=== PATIENT | female | born 1960 | race Caucasian/White ===

== ENCOUNTER → 2023-06-13 11:59 | Outpatient (CLI) | payer OTHER, SELFPAY ==
--- NOTE | 2023-06-13 12:01 | DI.RAD.S_ITS ---
PROCEDURE: XR LUMBAR SPINE 2-3V INDICATIONS: low back pain TECHNIQUE: 3 views of the lumbar spine were acquired. COMPARISON: None. FINDINGS: Bones: 5 [id number] vertebrae are present. 1.3 cm spondylolisthesis L5-S1. Multilevel disc height loss with endplate sclerosis and spurring, most notably and moderate at the L5-S1 level. Moderate facet joint arthropathy L5-S1.. No vertebral body compression fractures. No suspicious bony lesions. Soft tissues: Overlying bowel gas pattern is normal. No suspicious soft tissue calcifications. IMPRESSION: 1. Grade 2 spondylolisthesis L5-S1. Pars interarticularis defect cannot be excluded. 2. Multilevel lumbar spine spondylosis, most notably at the L5-S1 level. Dictated by: Dain Diaz [facility] Interpreted: Reji Melgar MD on 06/13/2023 at 12:36 Transcribed by: GUADALUPE on 06/13/2023 at 12:41 Approved by: Reji Melgar M.D. on 06/13/2023 at 13:55
[2023-06-13 14:20] LABS: Cholesterol 192 mg/dL (140-199); HDL Cholesterol 75 mg/dL (40-60); LDL Cholesterol Calculated 92 mg/dL (<100); Triglycerides 126 mg/dL (35-150)
--- NOTE | 2023-06-13 16:12 | DI.MG.S_ITS ---
BILATERAL DIGITAL SCREENING MAMMOGRAM 3D/2D WITH CAD: 06/13/2023 CLINICAL: Routine screening. Routine screening. Comparison is made to exams dated: 07/18/2020 mammogram, 06/01/2018 mammogram, 05/26/2017 mammogram, 05/23/2016 mammogram, and 05/22/2015 mammogram - outside facility. There are scattered areas of fibroglandular density in both breasts (category b / 25%-50% glandular tissue). Current study was also evaluated with a Computer Aided Detection (CAD) system. No significant masses, calcifications, or other findings are seen in either breast. There has been no significant interval change. IMPRESSION: NEGATIVE There is no mammographic evidence of malignancy. A 1 year screening mammogram is recommended. Based on the Tyrer Cuzick model (a risk assessment model) the patient's lifetime risk is 6.6% and her 10 year risk is 2.7%. According to the ACR, ACS, and NCCN guidelines, an annual breast MRI exam along with mammogram is recommended if the patient's lifetime risk is 20% or greater. This exam was interpreted at Station ID: [id number]. NOTE: For mammograms, a report in lay terms will be sent to the patient. Approximately 15% of breast malignancies will not be visualized mammographically. In the management of a palpable breast mass, a negative mammogram must not discourage biopsy of a clinically suspicious lesion. Electronically Signed By: Maxwell [email or web address]:06/16/2023 07:15:57 letter sent: Normal Exam ACR BI-RADS Category 1: Negative [id number]
== END ==
PROVIDERS: PCP Student in an Organized Health Care Education/Training Program; Referring Provider Student in an Organized Health Care Education/Training Program; Visit Provider Student in an Organized Health Care Education/Training Program
DX: Z12.31 Encounter for screening mammogram for malignant neoplasm of breast (principal); R92.323 Mammographic fibroglandular density, bilateral breasts; M43.17 Spondylolisthesis, lumbosacral region; Z13.220 Encounter for screening for lipoid disorders; M47.816 Spondylosis without myelopathy or radiculopathy, lumbar region; M47.817 Spondylosis without myelopathy or radiculopathy, lumbosacral region; M54.50 Low back pain, unspecified
CPT/HCPCS: 36415; 72100; 77063; 77067; 80061

== ENCOUNTER 2023-08-20 10:30 | Outpatient (RCR) | payer OTHER, SELFPAY ==
--- NOTE | 2023-07-15 12:49 | PT.OIE ---
Current Diagnoses Low back pain, unspecified (07/15/23) Visit Care Team Role Provider Type Marianne Adams MD Attending Provider Physician Family Provider Primary Care Provider Referring Provider Specialty: Family Practice Obstetrics Address: [address] [place] [address], [id number] Email: [email or web address] Physical Therapy Initial Evaluation PT-OP-A Visit Information Start: 07/14/23 13:32 Freq: Status: Active Protocol: Document 07/15/23 10:19 MB (Rec: 07/15/23 11:11 [id number]) Out-Patient Physical Therapy Visit Information Visit Information Visit Type Initial Evaluation Visit Start Time 10:19 Visit Stop Time 11:15 Visit Number 56 Number of FAST FOOD RESTAURANT MANAGER Visits 0 Evaluation Information Evaluation Date 07/15/23 PT-OP-B Current Condition Start: 07/14/23 13:32 Freq: Status: Active Protocol: Document 07/15/23 10:19 MB (Rec: 07/15/23 11:11 [id number]) Current Condition History of Current Condition Onset Date 6 months Current Complaints Sore low back all the time History of Current Condition Pt is commuting from [facility] and it is timely and costly. Pt reports about 6 months of LBP. Her back sore most of the time. She cannot think of an event that caused it. She has had PT once in the past for her shoulder and it was a good experience. 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 She is building a house and is helping with the work on it and she has been doing more work on it over the past 6 months. She has a big garden, 5 acres and likes to ride her back. She has arthritis in both her knees. Her back pain is not keeping her from anything but she suffers. Pt is waking up d/t back and knee pain. She has a CPAP and is a side sleeper. She does not use pillow support between arms or legs. Pt denies numbness and tingling and pain in the legs other than arthritic pain. Pt has HTN, HLD, history of left foot surgery and achilles lengthening, right shoulder arthroscopic surgery after fall and injury and . She occ feels like her legs are weak. Prior Treatments and Tests Lumbar x-ray 06/13/23: IMPRESSION: 1. Grade 2 spondylolisthesis L5-S1. Pars interarticularis defect cannot be excluded. 2. Multilevel lumbar spine spondylosis, most notably at the L5-S1 level. Treatment Goals Patient/Caregiver Goals Pt would like to decrease back pain and find exercises to strengthen back PT-OP-C Subjective Start: 07/14/23 13:32 Freq: Status: Active Protocol: Document 07/15/23 10:19 MB (Rec: 07/15/23 11:11 MB [id number]) OP-PT Subjective Patient Comments Patient Comments See above Patient Questionnaires Oswestry Low Back Index Oswestry Score 5/50 Oswestry Impairment 1 to 19% Impaired (Score 1-19) PT-OP-G Mobility & Gait Start: 07/14/23 13:32 Freq: Status: Active Protocol: Document 07/15/23 10:19 MB (Rec: 07/15/23 11:11 MB [id number]) OP Gait Assessment Comments Gait Comments Forward head, rounded shoulders, decreased arm swing , right leg is functionally longer than the left with gait , B knee varus PT-OP-J Posture/Palpation/Skin Start: 07/14/23 13:32 Freq: Status: Active Protocol: Document 07/15/23 10:19 MB (Rec: 07/15/23 11:11 MB [id number]) Posture Evaluation Comments Posture Comments Standing posture: increased soft tissue in abdominal area, left shoulder higher than the right, B rounded shoulders, increased thoracic convexity/ kyphosis, convexity to the left and 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 With repeated extension, increased pain and limited lumbar extension to only about 10 deg. Pt prefers repeated flexion and she is able to work up to fingertips 4 off the floor with flexion. Thoracic mobility in sitting: thoracic rotation left is grossly 20 deg and 25 deg to the right. Passive SLR: pt is unable to allow PT perform without helping PT-OP-M Strength Start: 07/14/23 13:32 Freq: Status: Active Protocol: Document 07/15/23 10:19 MB (Rec: 07/15/23 11:11 MB [id number]) Hip Strength Hip Manual Muscle Testing Left Flexion (L2) 5 Normal Extension (S1) 5 Normal Abduction 5 Normal Right Flexion (L2) 5 Normal Extension (S1) 4+ Good+ Abduction 4+ Good+ Knee Strength Knee Manual Muscle Testing Left Flexion (S2) 4+ Good+ Extension (L3) 5 Normal Right Flexion (S2) 4+ Good+ Extension (L3) 5 Normal Ankle/Foot Strength Ankle and Foot Manual Muscle Testing Bilateral Dorsiflexion (L4) 5 Normal Toe Strength Toe Manual Muscle Testing Left Great Toe Extension 5 Normal Right Great Toe Extension 5 Normal PT-OP-Q Treatments Start: 07/14/23 13:32 Freq: Status: Active Protocol: Document 07/15/23 10:19 MB (Rec: 07/15/23 11:11 MB [id number]) Therapeutic Exercises Supine Exercises Glute and hip rotator stretch Side bilateral Reps/Minutes 30 sec to 1 min Hip flexor and quad stretch Side bilateral Reps/Minutes 30 sec to 1 min Pelvic realignment exercises Side bilateral Equipment Used Blue ball Reps/Minutes 5 reps, 3 sec hold all exercises in order Comments Feet together ball squeeze iso , knee to opp ankle iso, thigh press down iso Self-Care/Home Management Treatment Education Patient Education Body Mechanics,Home Exercise Program,Joint Protection,Pain Management,Posture Other Education Proper sleeping position with use of pillow support, benefits of ice and heat, log roll technique, hydration with decreased caffeine and alcohol intake and possible electrolytes d/t muscle tension PT-OP-T Assessment and Plan Start: 07/14/23 13:32 Freq: Status: Active Protocol: Document 07/15/23 10:19 MB (Rec: 07/15/23 11:11 MB [id number]) Physical Therapy Assessment Rehab Potential Rehabilitation Potential Good Evaluation Complexity Number of Personal Factors/Comorbidities 1-2 Number of Body Systems Impaired 1-2 Clinical Presentation at Evaluation Evolving Impairments Impairments Activity Tolerance,Balance, Pain,Posture,ROM,Soft Tissue Mobility,Strength Goals 4 Impairment Poor sleeping d/t pain Shelter Goal (LTG) Pt will report at least a 50% improvement in pain d/t back pain to improve restorative rest. LTG Duration 8 weeks 3 Impairment Limited thoracic and lumbar ROM Parking Enforcement Specialist Goal (LTG) Pt will present with improved B thoracic rotation in sitting to equal both directions at least 25-30 deg, and lumbar flexion with fingertips no further than 2 from floor to improve spinal mobility and pain. LTG Duration 8 weeks 2 Impairment Lack of HEP Parking Enforcement Specialist Goal (LTG) Pt will perform progressive HEP with I including pelvic realignment, posture, flexibility, gentle core and LE strengthening and balance exercises to improve pain and function. LTG Duration 8 weeks 1 Impairment Oswestry score 5/50, reflecting 10% impairment Shelter Goal (LTG) Pt will present with an improved Oswestry score to no more than 5% impairment to reflect less pain and disability d/t back pain. LTG Duration 8 weeks Assessment Summary Assessment Pt is a 62 y/o female presenting with postural changes and pelvic obliquities : she has severe thoracic kyphosis and some convexity and sway back. She has limited thoracic and lumbar mobility and her left iliac crest is higher than the right in standing and she walks with functional leg length difference of right leg longer than the left. Her LE strength is good and she has no LE paresthesias. She presents with globalized muscle tension great in quads and hip rotators today. She will benefit from PT to improve pelvic alignment, flexibility, core strength, balance and posture. Physical Therapy Plan Frequency and Duration Frequency of Treatment 1x/wk, every other w Duration of treatment (weeks) 8 Plan of Care Start Date 07/15/23 Plan of Care End Date 09/15/23 Therapeutic Interventions Therapeutic Interventions Balance Training,Canalithic Repositioning,Gait Training, Home Exercise Program,Joint Mobilizations,Manual Therapy, Neuromuscular Re-education, Patient/Caregiver Education, Self-Care/Home Management,Soft Tissue Mobilization,Taping, Therapeutic Activities, Therapeutic Exercises Modalities Cold Pack/Ice Massage,Electric Stimulation,Hot Packs, Ultrasound Next Visit Focus/Plan Next Note Type Treatment Note Next Visit Plan Review pelvic realignment exercises and stretches, begin manual work, consider open book and hamstring stretch in hook lying with AP for next treatment additions.
--- NOTE | 2023-07-15 12:49 | PT.OPPOC ---
Physical, Occupational & Speech Therapy At [facility] Current Diagnoses Low back pain, unspecified (07/15/23) Visit Care Team Role Provider Type Marianne Adams MD Attending Provider Physician Family Provider Primary Care Provider Referring Provider Specialty: Family Practice Obstetrics Address: [address] [place] [address], [id number] Email: [email or web address] Plan Of Care PT-OP-T Assessment and Plan Start: 07/14/23 13:32 Freq: Status: Active Protocol: Document 07/15/23 10:19 MB (Rec: 07/15/23 11:11 MB [id number]) Physical Therapy Assessment Rehab Potential Rehabilitation Potential Good Evaluation Complexity Number of Personal Factors/Comorbidities 1-2 Number of Body Systems Impaired 1-2 Clinical Presentation at Evaluation Evolving Impairments Impairments Activity Tolerance,Balance, Pain,Posture,ROM,Soft Tissue Mobility,Strength Goals 4 Impairment Poor sleeping d/t pain Correction Goal (LTG) Pt will report at least a 50% improvement in pain d/t back pain to improve restorative rest. LTG Duration 8 weeks 3 Impairment Limited thoracic and lumbar ROM Freight Loading Supervisor Goal (LTG) Pt will present with improved B thoracic rotation in sitting to equal both directions at least 25-30 deg, and lumbar flexion with fingertips no further than 2 from floor to improve spinal mobility and pain. LTG Duration 8 weeks 2 Impairment Lack of HEP Freight Loading Supervisor Goal (LTG) Pt will perform progressive HEP with I including pelvic realignment, posture, flexibility, gentle core and LE strengthening and balance exercises to improve pain and function. LTG Duration 8 weeks 1 Impairment Oswestry score 5/50, reflecting 10% impairment Freight Loading Supervisor Goal (LTG) Pt will present with an improved Oswestry score to no more than 5% impairment to reflect less pain and disability d/t back pain. LTG Duration 8 weeks Assessment Summary Assessment Pt is a 62 y/o female presenting with postural changes and pelvic obliquities : she has severe thoracic kyphosis and some convexity and sway back. She has limited thoracic and lumbar mobility and her left iliac crest is higher than the right in standing and she walks with functional leg length difference of right leg longer than the left. Her LE strength is good and she has no LE paresthesias. She presents with globalized muscle tension great in quads and hip rotators today. She will benefit from PT to improve pelvic alignment, flexibility, core strength, balance and posture. Physical Therapy Plan Frequency and Duration Frequency of Treatment 1x/wk, every other w Duration of treatment (weeks) 8 Plan of Care Start Date 07/15/23 Plan of Care End Date 09/15/23 Therapeutic Interventions Therapeutic Interventions Balance Training,Canalithic Repositioning,Gait Training, Home Exercise Program,Joint Mobilizations,Manual Therapy, Neuromuscular Re-education, Patient/Caregiver Education, Self-Care/Home Management,Soft Tissue Mobilization,Taping, Therapeutic Activities, Therapeutic Exercises Modalities Cold Pack/Ice Massage,Electric Stimulation,Hot Packs, Ultrasound Next Visit Focus/Plan Next Note Type Treatment Note Next Visit Plan Review pelvic realignment exercises and stretches, begin manual work, consider open book and hamstring stretch in hook lying with AP for next treatment additions. Plan of Care Dates Plan of Care Start Date 07/15/23 Plan of Care End Date 09/15/23 Electronically Signed by: Brianna Hernandez PT 07/15/23 4122 If you are in agreement with this Plan of Care, please return a signed and dated copy. I have reviewed this Plan of Care and certify that the skilled therapy services above are required to meet the patient?s needs. Physician Signature Date Printed Name and Credentials Clinical Instructor Signature Printed Name and Credentials
--- NOTE | 2023-07-22 11:16 | PT.OTN ---
Current Diagnoses Low back pain, unspecified (07/22/23) Physical Therapy Treatment Note PT-OP-A Visit Information Start: 07/14/23 13:32 Freq: Status: Active Protocol: Document 07/22/23 10:32 MB (Rec: 07/22/23 11:15 MB [id number]) Out-Patient Physical Therapy Visit Information Visit Information Visit Type Treatment Note Visit Start Time 10:32 Visit Stop Time 11:12 Visit Number 40 Number of SPECIFICATION MANAGER Visits 0 PT-OP-B Current Condition Start: 07/14/23 13:32 Freq: Status: Active Protocol: Document 07/15/23 10:19 MB (Rec: 07/15/23 11:11 MB [id number]) Current Condition History of Current Condition Onset Date 6 months Current Complaints Sore low back all the time History of Current Condition Pt is commuting from [facility] and it is timely and costly. Pt reports about 6 months of LBP. Her back sore most of the time. She cannot think of an event that caused it. She has had PT once in the past for her shoulder and it was a good experience. 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 She is building a house and is helping with the work on it and she has been doing more work on it over the past 6 months. She has a big garden, 5 acres and likes to ride her back. She has arthritis in both her knees. Her back pain is not keeping her from anything but she suffers. Pt is waking up d/t back and knee pain. She has a CPAP and is a side sleeper. She does not use pillow support between arms or legs. Pt denies numbness and tingling and pain in the legs other than arthritic pain. Pt has HTN, HLD, history of left foot surgery and achilles lengthening, right shoulder arthroscopic surgery after fall and injury and . She occ feels like her legs are weak. Prior Treatments and Tests Lumbar x-ray 06/13/23: IMPRESSION: 1. Grade 2 spondylolisthesis L5-S1. Pars interarticularis defect cannot be excluded. 2. Multilevel lumbar spine spondylosis, most notably at the L5-S1 level. Treatment Goals Patient/Caregiver Goals Pt would like to decrease back pain and find exercises to strengthen back PT-OP-C Subjective Start: 07/14/23 13:32 Freq: Status: Active Protocol: Document 07/22/23 10:32 MB (Rec: 07/22/23 11:15 MB [id number]) OP-PT Subjective Patient Comments Patient Comments Pt was a little sore after the evaluation but is doing better. PT-OP-G Mobility & Gait Start: 07/14/23 13:32 Freq: Status: Active Protocol: Document 07/15/23 10:19 MB (Rec: 07/15/23 11:11 MB [id number]) OP Gait Assessment Comments Gait Comments Forward head, rounded shoulders, decreased arm swing , right leg is functionally longer than the left with gait , B knee varus PT-OP-J Posture/Palpation/Skin Start: 07/14/23 13:32 Freq: Status: Active Protocol: Document 07/15/23 10:19 MB (Rec: 07/15/23 11:11 MB [id number]) Posture Evaluation Comments Posture Comments Standing posture: increased soft tissue in abdominal area, left shoulder higher than the right, B rounded shoulders, increased thoracic convexity/ kyphosis, convexity to the left and 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 With repeated extension, increased pain and limited lumbar extension to only about 10 deg. Pt prefers repeated flexion and she is able to work up to fingertips 4 off the floor with flexion. Thoracic mobility in sitting: thoracic rotation left is grossly 20 deg and 25 deg to the right. Passive SLR: pt is unable to allow PT perform without helping PT-OP-M Strength Start: 07/14/23 13:32 Freq: Status: Active Protocol: Document 07/15/23 10:19 MB (Rec: 07/15/23 11:11 MB [id number]) Hip Strength Hip Manual Muscle Testing Left Flexion (L2) 5 Normal Extension (S1) 5 Normal Abduction 5 Normal Right Flexion (L2) 5 Normal Extension (S1) 4+ Good+ Abduction 4+ Good+ Knee Strength Knee Manual Muscle Testing Left Flexion (S2) 4+ Good+ Extension (L3) 5 Normal Right Flexion (S2) 4+ Good+ Extension (L3) 5 Normal Ankle/Foot Strength Ankle and Foot Manual Muscle Testing Bilateral Dorsiflexion (L4) 5 Normal Toe Strength Toe Manual Muscle Testing Left Great Toe Extension 5 Normal Right Great Toe Extension 5 Normal PT-OP-Q Treatments Start: 07/14/23 13:32 Freq: Status: Active Protocol: Document 07/22/23 10:32 MB (Rec: 07/22/23 11:15 MB [id number]) Therapeutic Exercises Supine Exercises Combined posterior, lateral and medial leg stretch Equipment Used Use of gait belt under foot Reps/Minutes 30 APs (30 sec to 1 min) Comments 1st: hamstring and calf with AP 2nd: TFL and glute min/ITB 3rd: add Glute and hip rotator stretch Side bilateral Reps/Minutes 30 sec to 1 min Hip flexor and quad stretch Side bilateral Reps/Minutes 30 sec to 1 min Pelvic realignment exercises Side bilateral Equipment Used Blue ball Reps/Minutes 5 reps, 3 sec hold all exercises in order Comments Feet together ball squeeze iso , knee to opp ankle iso, thigh press down iso Sidelying Exercises Open book Reps/Minutes 3-5 times Comments Perform on each side, pillow between legs as needed Manual Therapy Treatment Other Other Manual Treatments Pt supine: B quads, TFL, glute STM PT-OP-T Assessment and Plan Start: 07/14/23 13:32 Freq: Status: Active Protocol: Document 07/22/23 10:32 MB (Rec: 07/22/23 11:15 MB [id number]) Physical Therapy Assessment Rehab Potential Rehabilitation Potential Good Evaluation Complexity Number of Personal Factors/Comorbidities 1-2 Number of Body Systems Impaired 1-2 Clinical Presentation at Evaluation Evolving Impairments Impairments Activity Tolerance,Balance, Pain,Posture,ROM,Soft Tissue Mobility,Strength Goals 4 Impairment Poor sleeping d/t pain Care Home Goal (LTG) Pt will report at least a 50% improvement in pain d/t back pain to improve restorative rest. LTG Duration 8 weeks 3 Impairment Limited thoracic and lumbar ROM Human Factors Scientist Goal (LTG) Pt will present with improved B thoracic rotation in sitting to equal both directions at least 25-30 deg, and lumbar flexion with fingertips no further than 2 from floor to improve spinal mobility and pain. LTG Duration 8 weeks 2 Impairment Lack of HEP Care Home Goal (LTG) Pt will perform progressive HEP with I including pelvic realignment, posture, flexibility, gentle core and LE strengthening and balance exercises to improve pain and function. LTG Duration 8 weeks 1 Impairment Oswestry score 5/50, reflecting 10% impairment Care Home Goal (LTG) Pt will present with an improved Oswestry score to no more than 5% impairment to reflect less pain and disability d/t back pain. LTG Duration 8 weeks Assessment Summary Assessment Pt has been waking up less due to pain d/t putting pillow between her knees at night. Reviewed HEP and progressed today. Will con't manual work and flexibilty exercises and progress to core and LE strengthening and balance exercises. Physical Therapy Plan Frequency and Duration Frequency of Treatment 1x/wk, every other w Duration of treatment (weeks) 8 Plan of Care Start Date 07/15/23 Plan of Care End Date 09/15/23 Therapeutic Interventions Therapeutic Interventions Balance Training,Canalithic Repositioning,Gait Training, Home Exercise Program,Joint Mobilizations,Manual Therapy, Neuromuscular Re-education, Patient/Caregiver Education, Self-Care/Home Management,Soft Tissue Mobilization,Taping, Therapeutic Activities, Therapeutic Exercises Modalities Cold Pack/Ice Massage,Electric Stimulation,Hot Packs, Ultrasound Next Visit Focus/Plan Next Note Type Treatment Note Next Visit Plan Over many treatments: Ongoing manual work, doorway stretch for pect, QL and hip flexor; initiate gentle core progression in hook lying, consider Body blade in future, gentle hip progression starting in hook lying with clam and then in standing, standing balance exercise, body mechanics with core engagement
--- NOTE | 2023-07-29 16:17 | PT.OTN ---
Current Diagnoses Low back pain, unspecified (07/29/23) Physical Therapy Treatment Note PT-OP-A Visit Information Start: 07/14/23 13:32 Freq: Status: Active Protocol: Document 07/29/23 13:05 SW (Rec: 07/29/23 13:59 SW [id number]) Out-Patient Physical Therapy Visit Information Visit Information Visit Type Treatment Note Visit Start Time 13:03 Visit Stop Time 13:41 Number of CAMP NURSE Visits 1 PT-OP-B Current Condition Start: 07/14/23 13:32 Freq: Status: Active Protocol: Document 07/15/23 10:19 MB (Rec: 07/15/23 11:11 MB [id number]) Current Condition History of Current Condition Onset Date 6 months Current Complaints Sore low back all the time History of Current Condition Pt is commuting from [facility] and it is timely and costly. Pt reports about 6 months of LBP. Her back sore most of the time. She cannot think of an event that caused it. She has had PT once in the past for her shoulder and it was a good experience. 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 She is building a house and is helping with the work on it and she has been doing more work on it over the past 6 months. She has a big garden, 5 acres and likes to ride her back. She has arthritis in both her knees. Her back pain is not keeping her from anything but she suffers. Pt is waking up d/t back and knee pain. She has a CPAP and is a side sleeper. She does not use pillow support between arms or legs. Pt denies numbness and tingling and pain in the legs other than arthritic pain. Pt has HTN, HLD, history of left foot surgery and achilles lengthening, right shoulder arthroscopic surgery after fall and injury and . She occ feels like her legs are weak. Prior Treatments and Tests Lumbar x-ray 06/13/23: IMPRESSION: 1. Grade 2 spondylolisthesis L5-S1. Pars interarticularis defect cannot be excluded. 2. Multilevel lumbar spine spondylosis, most notably at the L5-S1 level. Treatment Goals Patient/Caregiver Goals Pt would like to decrease back pain and find exercises to strengthen back PT-OP-C Subjective Start: 07/14/23 13:32 Freq: Status: Active Protocol: Document 07/29/23 13:05 SW (Rec: 07/29/23 13:59 SW [id number]) OP-PT Subjective Patient Comments Patient Comments Pt reports 5/10 pain today, rough ride over on personal boat. PT-OP-G Mobility & Gait Start: 07/14/23 13:32 Freq: Status: Active Protocol: Document 07/15/23 10:19 MB (Rec: 07/15/23 11:11 MB [id number]) OP Gait Assessment Comments Gait Comments Forward head, rounded shoulders, decreased arm swing , right leg is functionally longer than the left with gait , B knee varus PT-OP-J Posture/Palpation/Skin Start: 07/14/23 13:32 Freq: Status: Active Protocol: Document 07/15/23 10:19 MB (Rec: 07/15/23 11:11 MB [id number]) Posture Evaluation Comments Posture Comments Standing posture: increased soft tissue in abdominal area, left shoulder higher than the right, B rounded shoulders, increased thoracic convexity/ kyphosis, convexity to the left and 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 With repeated extension, increased pain and limited lumbar extension to only about 10 deg. Pt prefers repeated flexion and she is able to work up to fingertips 4 off the floor with flexion. Thoracic mobility in sitting: thoracic rotation left is grossly 20 deg and 25 deg to the right. Passive SLR: pt is unable to allow PT perform without helping PT-OP-M Strength Start: 07/14/23 13:32 Freq: Status: Active Protocol: Document 07/15/23 10:19 MB (Rec: 07/15/23 11:11 MB [id number]) Hip Strength Hip Manual Muscle Testing Left Flexion (L2) 5 Normal Extension (S1) 5 Normal Abduction 5 Normal Right Flexion (L2) 5 Normal Extension (S1) 4+ Good+ Abduction 4+ Good+ Knee Strength Knee Manual Muscle Testing Left Flexion (S2) 4+ Good+ Extension (L3) 5 Normal Right Flexion (S2) 4+ Good+ Extension (L3) 5 Normal Ankle/Foot Strength Ankle and Foot Manual Muscle Testing Bilateral Dorsiflexion (L4) 5 Normal Toe Strength Toe Manual Muscle Testing Left Great Toe Extension 5 Normal Right Great Toe Extension 5 Normal PT-OP-Q Treatments Start: 07/14/23 13:32 Freq: Status: Active Protocol: Document 07/29/23 13:05 (Rec: 07/29/23 13:59 [id number]) Therapeutic Exercises Supine Exercises TA Supine Exercise Name TA activation w/PPT (issued HEP HO) Reps/Minutes 5 reps, 3 hold Combined posterior, lateral and medial leg stretch Equipment Used Use of gait belt under foot Reps/Minutes 30 APs (30 sec to 1 min) Comments 1st: hamstring and calf with AP 2nd: TFL and glute min/ITB 3rd: add Glute and hip rotator stretch Side bilateral Reps/Minutes 30 sec to 1 min Pelvic realignment exercises Side bilateral Equipment Used Blue ball Reps/Minutes 5 reps, 3 sec hold all exercises in order Comments Feet together ball squeeze iso , knee to opp ankle iso, thigh press down iso Sidelying Exercises Open book Reps/Minutes 3-5 times Comments Perform on each side, pillow between legs as needed Standing Exercises Doorway stretch Standing Exercise Name Pec, Hip flexor> to side for QL (issued HEP HO) Reps/Minutes 30-1 min hold Self-Care/Home Management Treatment Education Patient Education Body Mechanics,Home Exercise Program,Joint Protection,Pain Management,Posture Other Education Educated pt on sleep positioning, pillow between knees, towel roll under side to promote spinal alignment. Pt education on HEP execution/ timing. PT-OP-T Assessment and Plan Start: 07/14/23 13:32 Freq: Status: Active Protocol: Document 07/29/23 13:05 (Rec: 07/29/23 13:59 [id number]) Physical Therapy Assessment Goals 4 Impairment Poor sleeping d/t pain Phototypesetting Equipment Monitor Goal (LTG) Pt will report at least a 50% improvement in pain d/t back pain to improve restorative rest. LTG Duration 8 weeks 3 Impairment Limited thoracic and lumbar ROM Prison Goal (LTG) Pt will present with improved B thoracic rotation in sitting to equal both directions at least 25-30 deg, and lumbar flexion with fingertips no further than 2 from floor to improve spinal mobility and pain. LTG Duration 8 weeks 2 Impairment Lack of HEP Prison Goal (LTG) Pt will perform progressive HEP with I including pelvic realignment, posture, flexibility, gentle core and LE strengthening and balance exercises to improve pain and function. LTG Duration 8 weeks 1 Impairment Oswestry score 5/50, reflecting 10% impairment Prison Goal (LTG) Pt will present with an improved Oswestry score to no more than 5% impairment to reflect less pain and disability d/t back pain. LTG Duration 8 weeks Assessment Summary Assessment Initiated gentle core stabilization this session, pt tolerated well no increase in symptoms, verbal and tactile cues to facilitate activation of correct muscles. Initiated Doorway stretch for hip flexor , pec, QL, and gastroc/soleus muscles, good tolerance. Pt overall tolerated session well with no increase in symptoms and felt good stretch today, plan to assess pt tolerance to new exercises this session, and progress core stabiliztion as able. Physical Therapy Plan Frequency and Duration Frequency of Treatment 1x/wk, every other w Duration of treatment (weeks) 8 Plan of Care Start Date 07/15/23 Plan of Care End Date 09/15/23 Therapeutic Interventions Therapeutic Interventions Balance Training,Canalithic Repositioning,Gait Training, Home Exercise Program,Joint Mobilizations,Manual Therapy, Neuromuscular Re-education, Patient/Caregiver Education, Self-Care/Home Management,Soft Tissue Mobilization,Taping, Therapeutic Activities, Therapeutic Exercises Modalities Cold Pack/Ice Massage,Electric Stimulation,Hot Packs, Ultrasound Next Visit Focus/Plan Next Note Type Treatment Note Next Visit Plan Over many treatments: Ongoing manual work, doorway stretch for pect, QL and hip flexor; initiate gentle core progression in hook lying, consider Body blade in future, gentle hip progression starting in hook lying with clam and then in standing, standing balance exercise, body mechanics with core engagement
--- NOTE | 2023-08-20 11:13 | PT.OTN ---
Current Diagnoses Low back pain, unspecified (08/20/23) Physical Therapy Treatment Note PT-OP-A Visit Information Start: 07/14/23 13:32 Freq: Status: Active Protocol: Document 08/20/23 10:31 MB (Rec: 08/20/23 11:05 MB [id number]) Out-Patient Physical Therapy Visit Information Visit Information Visit Type Treatment Note Visit Start Time 10:31 Visit Stop Time 11:09 Visit Number 4 Number of BOX ESTIMATOR Visits 0 PT-OP-B Current Condition Start: 07/14/23 13:32 Freq: Status: Active Protocol: Document 07/15/23 10:19 MB (Rec: 07/15/23 11:11 MB [id number]) Current Condition History of Current Condition Onset Date 6 months Current Complaints Sore low back all the time History of Current Condition Pt is commuting from [facility] and it is timely and costly. Pt reports about 6 months of LBP. Her back sore most of the time. She cannot think of an event that caused it. She has had PT once in the past for her shoulder and it was a good experience. 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 She is building a house and is helping with the work on it and she has been doing more work on it over the past 6 months. She has a big garden, 5 acres and likes to ride her back. She has arthritis in both her knees. Her back pain is not keeping her from anything but she suffers. Pt is waking up d/t back and knee pain. She has a CPAP and is a side sleeper. She does not use pillow support between arms or legs. Pt denies numbness and tingling and pain in the legs other than arthritic pain. Pt has HTN, HLD, history of left foot surgery and achilles lengthening, right shoulder arthroscopic surgery after fall and injury and . She occ feels like her legs are weak. Prior Treatments and Tests Lumbar x-ray 06/13/23: IMPRESSION: 1. Grade 2 spondylolisthesis L5-S1. Pars interarticularis defect cannot be excluded. 2. Multilevel lumbar spine spondylosis, most notably at the L5-S1 level. Treatment Goals Patient/Caregiver Goals Pt would like to decrease back pain and find exercises to strengthen back PT-OP-C Subjective Start: 07/14/23 13:32 Freq: Status: Active Protocol: Document 08/20/23 10:31 MB (Rec: 08/20/23 11:05 MB [id number]) OP-PT Subjective Patient Comments Patient Comments Pt reports her pain is much better and occ flares up and she is doing all her exercises . PT-OP-G Mobility & Gait Start: 07/14/23 13:32 Freq: Status: Active Protocol: Document 07/15/23 10:19 MB (Rec: 07/15/23 11:11 MB [id number]) OP Gait Assessment Comments Gait Comments Forward head, rounded shoulders, decreased arm swing , right leg is functionally longer than the left with gait , B knee varus PT-OP-J Posture/Palpation/Skin Start: 07/14/23 13:32 Freq: Status: Active Protocol: Document 07/15/23 10:19 MB (Rec: 07/15/23 11:11 MB [id number]) Posture Evaluation Comments Posture Comments Standing posture: increased soft tissue in abdominal area, left shoulder higher than the right, B rounded shoulders, increased thoracic convexity/ kyphosis, convexity to the left and 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 With repeated extension, increased pain and limited lumbar extension to only about 10 deg. Pt prefers repeated flexion and she is able to work up to fingertips 4 off the floor with flexion. Thoracic mobility in sitting: thoracic rotation left is grossly 20 deg and 25 deg to the right. Passive SLR: pt is unable to allow PT perform without helping PT-OP-M Strength Start: 07/14/23 13:32 Freq: Status: Active Protocol: Document 07/15/23 10:19 MB (Rec: 07/15/23 11:11 MB [id number]) Hip Strength Hip Manual Muscle Testing Left Flexion (L2) 5 Normal Extension (S1) 5 Normal Abduction 5 Normal Right Flexion (L2) 5 Normal Extension (S1) 4+ Good+ Abduction 4+ Good+ Knee Strength Knee Manual Muscle Testing Left Flexion (S2) 4+ Good+ Extension (L3) 5 Normal Right Flexion (S2) 4+ Good+ Extension (L3) 5 Normal Ankle/Foot Strength Ankle and Foot Manual Muscle Testing Bilateral Dorsiflexion (L4) 5 Normal Toe Strength Toe Manual Muscle Testing Left Great Toe Extension 5 Normal Right Great Toe Extension 5 Normal PT-OP-Q Treatments Start: 07/14/23 13:32 Freq: Status: Active Protocol: Document 08/20/23 10:31 MB (Rec: 08/20/23 11:05 MB [id number]) Therapeutic Exercises Supine Exercises Bridge with band around hips Equipment Used Theraband around knees, teal Comments Gentle bridging warm-up, then progressed to hold, press out Gentle core progression Reps/Minutes To tolerance, keep pelvic tilt and core tight Comments Set position for TA and pelvic tilt, then knee rock, HS, mini march, fall o TA Comments Reviewed today with pelvic tilt today Glute and hip rotator stretch Comments I performed today Sitting Exercises Thoracic rotation in sitting Comments Hands across the chest and ROM both directions Neuro Re-Education Treatment Balance Activities Corner static balance testing for HEP Comments Romberg standing EO no trouble , Romberg EC with slight sway, some tap out at wall with B tandem up to 1' and good exercise for home; SLS a little more challenging on the right PT-OP-T Assessment and Plan Start: 07/14/23 13:32 Freq: Status: Active Protocol: Document 08/20/23 10:31 MB (Rec: 08/20/23 11:05 MB [id number]) Physical Therapy Assessment Goals 4 Impairment Poor sleeping d/t pain Half-Way Goal (LTG) Pt will report at least a 50% improvement in sleeping d/t back pain to improve restorative rest. 08/20/23 Goal met and pt states that she is sleeping much better LTG Duration Met 3 Impairment Limited thoracic and lumbar ROM Half-Way Goal (LTG) Pt will present with improved B thoracic rotation in sitting to equal both directions at least 25-30 deg, and lumbar flexion with fingertips no further than 2 from floor to improve spinal mobility and pain. 08/20/23: Right thoracic rotation grossly 25 deg and left 30 deg; lumbar flexion with fingertips grossly 2.5 from the floor LTG Duration Partially met 2 Impairment Lack of HEP Slip Box Changer Goal (LTG) Pt will perform progressive HEP with I including pelvic realignment, posture, flexibility, gentle core and LE strengthening and balance exercises to improve pain and function. 08/20/23 Pt is performing all HEP exercises and is feeling good LTG Duration Met 1 Impairment Oswestry score 5/50, reflecting 10% impairment Slip Box Changer Goal (LTG) Pt will present with an improved Oswestry score to no more than 5% impairment to reflect less pain and disability d/t back pain. 08/20/23: Oswestry score is 2/ 50 and reflects 4% impairment LTG Duration Met Assessment Summary Assessment Pt has been a very compliant pt with PT as far as visits with long commute and performing HEP. She has met three goals and progressed towards thoracic and lumbar ROM goal today. Added thoracic rotation today and progress core and glute strengthening today. Also provided balance exercise to improve ankle, core and SI stability. Pt is ready to d/c.
== END 2023-08-25 11:11 | disposition home or self-care (01) ==
LOC: PHYS 10:30
PROVIDERS: Family Provider Student in an Organized Health Care Education/Training Program; PCP Student in an Organized Health Care Education/Training Program; Referring Provider Student in an Organized Health Care Education/Training Program; Visit Provider Student in an Organized Health Care Education/Training Program
DX: M54.50 Low back pain, unspecified (principal)
CPT/HCPCS: 97110; 97112; 97140; 97161; 97535

== ENCOUNTER → 2024-06-03 11:49 | Outpatient (CLI) | payer OTHER, SELFPAY ==
[2024-06-03 12:29] LABS: Add Manual Diff / Slide Review NO; Basophils Absolute Auto 100 /uL (0-100); Basophils Percent Auto 1.2 % (0-2); Eosinophils Absolute Auto 300 /uL (0-450); Eosinophils Percent Auto 4.8 % (2-4); Hemoglobin 13.8 g/dL (12.0-16.0); Lymphocytes Absolute Auto 1800 /uL (1100-4500); Lymphocytes Percent Auto 28.4 % (25-40); Mean Corpuscular HGB Conc 34.6 % (30-36); Mean Corpuscular Hemoglobin 30.9 PG (26-34); Mean Corpuscular Volume 89.5 fL (80-100); Monocytes Absolute Auto 300 /uL (0-900); Monocytes Percent Auto 5.5 % (3-14); Neutrophils Absolute Auto 3700 /uL (1500-7000); Neutrophils Percent Auto 60.1 % (50-75); Platelet Count 270 X10^3/uL (150-400); Red Blood Cell Count 4.47 X10^6/uL (4.0-5.2); Red Cell Distribution Width 13.2 % (11.6-14.8); White Blood Cell Count 6.2 X10^3/uL (4.5-11.0)
[2024-06-03 13:03] LABS: BUN Creatinine Ratio 19.2 (6-22); Blood Urea Nitrogen 15 mg/dL (7-17); Estimated Glomerular Filt Rate > 60 mL/min (>60)
[2024-06-03 14:53] LABS: Creatinine Urine Random 32.64 mg/dL
[2024-06-03 14:59] LABS: Microalbumin Urine Random < 0.6 mg/dL (0-1.6)
== END ==
PROVIDERS: Family Provider Student in an Organized Health Care Education/Training Program; PCP Student in an Organized Health Care Education/Training Program; Referring Provider Student in an Organized Health Care Education/Training Program; Visit Provider Student in an Organized Health Care Education/Training Program
DX: I10 Essential (primary) hypertension (principal)
CPT/HCPCS: 36415; 82043; 82565; 82570; 84520; 85025

== ENCOUNTER → 2024-07-02 09:09 | Outpatient (CLI) | payer OTHER, SELFPAY ==
--- NOTE | 2024-07-02 09:09 | DI.ECHO.S_ITS ---
[place] [facility]---------+ [facility] : : [address] : : [place] : : [id number] : : Phone: [phone] Echocardiogram Report + + :Name: ANGIE ROBERTO Study Date: 07/02/2024 Height: 64 in : :[facility] ReadingLocation: Weight: 160 lb : : Gender: Female BSA: 1.8 m2 : :: 1960 Age: 63 yrs BP: 168/102 mmHg: :Reason For Study: ESSENTIAL HYPERTENSION : :Ordering Physician: : :YOLANDA MAZARIEGOS Performed By: Tc Gomez : :Referring: YOLANDA MAZARIEGOS : + + Interpretation Summary The left ventricle is normal in size. The ejection fraction is estimated to be 65-70%. The right ventricle is normal in size and function. No significant valvular pathology seen. The IVC is of normal diameter and collapses greater than 50% with a sniff. This suggests a low right atrial pressure of 3 mm Hg. BP: 168/102 mmHg Procedure: A two-dimensional transthoracic echocardiogram with color flow and Doppler was performed. The study quality was technically good. There is no prior echocardiogram noted for this patient. The patient was in normal sinus rhythm during the exam. Left Ventricle: The left ventricle is normal in size. There is normal left ventricular wall thickness. There is no thrombus. The ejection fraction is estimated to be 65-70%. The left ventricular ejection fraction is normal. There are no focal wall motion abnormalities. MV E/A: 0.55 Med Peak E' Montez: 3.3 cm/sec E/E' med: 20.5. Right Ventricle: The right ventricle is normal in size and function. Atria: The left atrial size is normal. Right atrial size is normal. There is no Doppler evidence for an atrial septal defect. Mitral Valve: There is mild mitral annular calcification. There is no mitral regurgitation noted. Aortic Valve: The aortic valve is trileaflet. The aortic valve opens well. There is no aortic valve stenosis. No aortic regurgitation is present. Tricuspid Valve: The tricuspid valve leaflets are thin and pliable. No tricuspid regurgitation. Pulmonic Valve: The pulmonic valve is not well seen, but is grossly normal. There is no pulmonic valvular regurgitation. Great Vessels: The aortic root is normal size. The dimensions of the ascending aorta are normal. The pulmonary artery is normal size. The IVC is of normal diameter and collapses greater than 50% with a sniff. This suggests a low right atrial pressure of 3 mm Hg. Pericardium/ Pleura There is no pericardial effusion. There is an anterior echo-free space consistent with a fat pad. There is no pleural effusion. MMode/2D Measurements & Calculations LVIDd: 4.3 cm LVOT diam: 2.1 cm LVIDs: 2.3 cm Ao root diam: 3.2 cm FS: 45.0 % asc Aorta Diam: 3.6 cm EPSS: 0.68 cm Ao Arch Diam (Prox Trans): 1.5 cm IVSd: 0.99 cm LVPWd: 0.98 cm LV bassett. diameter/BSA (cm/m^2): 2.4 LV sys. diameter/BSA (cm/m^2): 1.3 LA A2 area: 15.7 cm2 RA long axis: 4.6 cm LA A4 area: 16.5 cm2 RA area: 13.5 cm2 LA length (vol): 6.0 cm RA vol: 33.4 ml LA vol: 36.8 ml RA : 18.8 ml/m2 LA vol index: 20.7 ml/m2 IVC diam: 1.5 cm RVD1 (basal): 3.8 cm RVD2 (mid): 3.3 cm TAPSE: 2.8 cm Doppler Measurements & Calculations Ao V2 max: 154.7 cm/sec LVOT Max Montez: 98.3 cm/sec Ao V2 mean: 108.3 cm/sec LV V1 max P.9 mmHg Ao max P.6 mmHg LV V1 VTI: 24.7 cm Ao mean P.2 mmHg JANESSA(I,D): 2.2 cm2 Ao V2 VTI: 39.2 cm JANESSA(V,D): 2.2 cm2 sev ratio: 0.63 JANESSA indexed to BSA (cm^2/m^2): 1.2 MV E max montez: 68.6 cm/sec PA V2 max: 79.7 cm/sec MV A max montez: 123.7 cm/sec PA V2 mean: 51.0 cm/sec MV E/A: 0.55 PA mean P.2 mmHg Med Peak E' Montez: 3.3 cm/sec PA pr(Accel): 41.3 mmHg E/E' med: 20.5 Lat Peak E' Montez: 3.6 cm/sec E/E' lat: 19.0 E/e' average: 19.8 MV dec time: 0.26 sec SVLVOT): 85.8 ml Reading Physician:05:28 PM
== END ==
PROVIDERS: Family Provider Student in an Organized Health Care Education/Training Program; PCP Student in an Organized Health Care Education/Training Program; Referring Provider Student in an Organized Health Care Education/Training Program; Visit Provider Student in an Organized Health Care Education/Training Program
DX: I34.81 Nonrheumatic mitral (valve) annulus calcification (principal); I10 Essential (primary) hypertension
CPT/HCPCS: 93306

== ENCOUNTER → 2024-08-26 11:17 | Outpatient (CLI) | payer OTHER, SELFPAY ==
--- NOTE | 2024-08-26 11:18 | DI.MG.S_ITS ---
MM screening mammo BI: 08/26/2024. BI-RADS: 1 CLINICAL: 63-year old female for bilateral screening mammogram. Tyrer-Cuzick lifetime risk of 15.8%. Current reported family history of breast cancer: mother. PRIOR EXAMS 06/13/2023, 07/18/2020, 06/01/2018, 05/26/2017. MAMMOGRAPHY TECHNIQUE: 2D and 3D (tomosynthesis) digital mammographic views obtained, with additional images as needed for full coverage. Current study was also evaluated with a Computer Aided Detection (CAD) system. DENSITY B. There are scattered areas of fibroglandular density. MAMMOGRAPHY FINDINGS Bilateral: No suspicious mass, asymmetry, microcalcification, or other abnormality seen. IMPRESSION: * No evidence of malignancy. RECOMMENDATIONS Bilateral * Annual screening mammography. OVERALL ASSESSMENT CATEGORY BI-RADS-1: Negative. The [employer] recommends annual screening mammography beginning at age 40 for women with average risk of breast cancer. ELECTRONICALLY SIGNED: Alma Loyola M.D. on 08/28/2024 at 09:05:39 AM PT Interpreting Station ID: [id number]
== END ==
PROVIDERS: Family Provider Student in an Organized Health Care Education/Training Program; PCP Student in an Organized Health Care Education/Training Program; Referring Provider Student in an Organized Health Care Education/Training Program; Visit Provider Student in an Organized Health Care Education/Training Program
DX: Z12.31 Encounter for screening mammogram for malignant neoplasm of breast (principal); Z80.3 Family history of malignant neoplasm of breast
CPT/HCPCS: 77063; 77067

== ENCOUNTER 2024-09-16 09:28 | Day surgery (SDC) | payer OTHER, SELFPAY ==
--- NOTE | 2024-09-16 | PATH_ITS ---
[facility] Accession Number: [id number] No. of containers..01 Tissue . 01 Material submitted: . colon - COLON, ASCENDING POLYP . 01 Diagnosis: COLON, ASCENDING POLYP: Tubular adenoma. [facility] 09/21/20241850 Local . 01 Electronically signed: . Luis Willett MD, Pathologist NPI- [id number] . 01 Gross description: . Received in formalin with two patient identifiers and ascending colon polyp, is a single carranza soft tissue fragment 0.6 cm in greatest dimension. Submitted in cassette A1. ([id number]) /[facility] 09/21/20241850 Local . 01 Pathologist provided ICD-10: D12.2 . 01 CPT . 986603 Specimen Comment: A courtesy copy of this report has been sent to [phone] Performed at: [address] [facility] [id number] MD Luis Willett MD Phone: [phone]
[2024-09-16 09:43] VITALS: BP 147/77; PULSE 65; RESP 16; TEMP 36.6; O2SAT 99
[2024-09-16] MEDS: LACTATED RINGERS 1,000 ML 42 ML IV (09:50)
--- NOTE | 2024-09-16 09:57 | PM.HP.IH.1 ---
History of Present Illness History of Present Illness Date Patient Seen: 09/16/24 Time Patient Seen: 09:57 Chief complaint: Screening Colonoscopy Narrative: Liz is a 63-year-old woman who presents for a colonoscopy. Her last colonoscopy was in [address] [facility]. She does not recall having any polyps effect colonoscopy or any other time. No family history of colon cancer. [facility] Medical History (Updated 09/16/24 @ 09:58 by Luis Koenig MD) HTN (hypertension) Hyperlipemia Social History Smoking Status: Never smoker Meds Home Medications and Allergies Home Medications Medication Instructions Recorded Confirmed Type ascorbic acid (vitamin C) 1,000 mg 1 g PO DAILY 05/19/23 06/03/24 History tablet (Vitamin C With Maria G Hips) omega 4-xeu-bkp-fish oil 1,000 mg 1 cap PO DAILY 05/19/23 06/03/24 History (120 mg-180 mg) capsule (Fish Oil) atorvastatin 10 mg tablet 10 mg PO DAILY #90 tabs 05/11/24 09/16/24 Rx valsartan 160 mg tablet 160 mg PO DAILY #90 tabs 05/11/24 09/16/24 Rx hydrochlorothiazide 25 mg tablet 25 mg PO DAILY High Blood Pressure 06/03/24 09/16/24 Rx #90 tabs sodium,potassium,mag sulfates 17.5 See Rx Instructions PO .COMPLEX 09/01/24 Rx gram-3.13 gram-1.6 gram oral soln #354 mL (Suprep Bowel Prep Kit) magnesium 250 mg tablet 250 mg PO DAILY 09/16/24 09/16/24 History Allergies Allergy/AdvReac Type Severity Reaction Status Date / Time No Known Drug Allergies Allergy Verified 06/03/24 11:19 Exam Vital Signs (past 8 hours): - 09/16/24 09:43 Temperature 97.9 F Pulse Rate 65 Respiratory Rate 16 Blood Pressure 147/77 H Pulse Oximetry 99 Oxygen Delivery Method Room Air Oxygen Delivery Method Room Air Const General: No acute distress Resp Effort & Inspection: normal respiratory effort Assessment & Plan Assessment and plan (1) Colon cancer screening: Status: Acute Plan Colonoscopy Time-Based Coding :: [TOTAL MINUTES] spent with patient and on the chart (including review of chart, obtaining history, exam, reviewing outside data, placing orders, documenting exam and treatment plan, and counseling patient) on [DATE]. PROFEE Steel Pan Form Placing Supervisor Document charge(s): No
--- NOTE | 2024-09-16 10:28 | PM.OP.COLON ---
Operative Date/Time/Diagnoses Date of procedure: 09/16/24 Time of procedure: 10:28 Pre-op diagnosis: Colon cancer screening Post-op diagnosis: same Procedure & Clinicians Study performed: Colonoscopy Same procedure as scheduled: Yes Surgeon: Luis Koenig Procedure Notes Procedure in detail: Surgeon: Luis Koenig MD Anesthesia: Arun Rios MD Procedure: The patient was brought to the endoscopy suite, placed in left lateral decubitus position. The patient was connected to monitoring devices. A time-out was performed. Sedation was administered. Once the patient was adequately sedated, a digital rectal exam was performed and was normal. The scope was then inserted and advanced to the cecum where the appendiceal orifice was identified and photographed. The scope was then slowly withdrawn over greater than 6 minutes. The mucosa was thoroughly inspected. Was 1 small polyp in the ascending colon removed with a cold snare. The scope was retroflexed in the rectum. No other abnormalities were found. The scope was straightened and removed. The patient was awakened and brought to recovery. Scope withdrawal time: 8 minutes Sedation time: 12 minutes EBL: 2 mL Findings: Small polyp in the ascending colon Post-procedure Disposition: PACU
[2024-09-16 10:30] VITALS: BP 99/65; PULSE 57; RESP 16; TEMP 36.2; O2SAT 100
[2024-09-16 10:35] VITALS: BP 100/60; PULSE 55; RESP 16; O2SAT 98
== END 2024-09-16 10:57 | disposition home or self-care (01) ==
PROVIDERS: Family Provider Student in an Organized Health Care Education/Training Program; PCP Student in an Organized Health Care Education/Training Program; Referring Provider Surgery; Visit Provider Surgery
PROC: 0DJD8ZZ Inspection of Lower Intestinal Tract, Via Natural or Artificial Opening Endoscopic (ICD-10-PCS; CPT 45378; principal; 2024-09-16 10:30)
DX: Z12.11 Encounter for screening for malignant neoplasm of colon (principal); D12.2 Benign neoplasm of ascending colon
CPT/HCPCS: 45385; J2704